=== PATIENT | male | born 1950 | race Caucasian/White ===

== ENCOUNTER 2022-09-29 09:41 | Inpatient (IN) ==
--- NOTE | 2022-09-24 10:49 | Anesthesiology Consultation ---
Date of Service September 24, 2022 Assessment & Plan (1) Encounter for pre-operative examination: ADDENDUM 09/28/22: Pt requiring admission post operatively. Plan for recheck with COVAMY Greenberg AM DOS due to possibility that patient may have a roommate. OR aware. Greenberg order placed - RAHEL FANG 09/28/22 1059 - COVID screening: Per casino assistant manager on 09/17/2022: Inmate, Greenberg ordered for am DOS. Chart Review Chart Review: Acceptable Risk for Surgery and Patient NOT seen in Pre Admission Testing History Surgery Operation Date: 09/29/22 11:40 Proposed Procedures p Percutaneous Endovascular Repair Abdominal Aortic Aneurysm - Gustavo Brice MD Height/Weight Height: 6 ft Weight: 62.596 kg Allergies Allergy/AdvReac Type Severity Reaction Status Date / Time No Known Allergies Allergy Verified 09/17/22 13:20 Medications Home Medications Medication Instructions Recorded Confirmed Last Taken aspirin 81 mg tablet,delayed 81 mg PO DAILY 11/07/20 09/17/22 Unknown release atorvastatin 40 mg tablet 40 mg PO DAILY 11/07/20 09/17/22 Unknown carvedilol 3.125 mg tablet 3.125 mg PO BID 11/07/20 09/17/22 Unknown Past Medical History Medical History (Updated 09/24/22 @ 10:48 by Vani Reis PA-C) Abdominal aortic aneurysm 5.5 cm CAD (coronary artery disease) h/o [place]/PCI 2005 GERD (gastroesophageal reflux disease) Hyperlipidemia Hypertension PAD (peripheral artery disease) s/p aortic femoral bypass surgery in 2005 Past Surgical History Surgical History (Updated 09/24/22 @ 10:49 by Vani Reis PA-C) H/O [id number] bypass 2005 H/O cardiac catheterization s/p PCI 2005 Social History Smoking Status: Unknown if ever smoked Testing Laboratory Results 09/23/2022 WBC: 6.8 H/H: 15/48 PLATELETS: 160 SODIUM: 141 POTASSIUM: 4.2 CHLORIDE: 104 CO2: 30 BUN: 17 CREATININE: 0.9 GLUCOSE: 81 PT: 11 PTT: 34 INR: 1 UA: negative A1c: 5.5% Electrocardiogram Date: 09/16/22 NSR, rate 81 bpm Possible LA enlargement RBBB Chest X-Ray Date: 09/14/22 No radiographic evidence of acute cardiopulmonary disease Echocardiogram Date: 08/20/22 EF 70% Normal wall motion No significant valvular pathology Other Testing Abdomen pelvis CTA 07/17/22 1. Patent aortobifemoral bypass. Stable aneurysmal dilatation of the infrarenal abdominal aorta, measuring 5.3 x 4 cm, since ultrasound of December 15, 2021 when allowing for differences in technique. Patent bilateral iliofemoral limbs, as described above. 2. 9 mm left lower lobe lobulated pulmonary nodule. This is indeterminate. A follow up chest CT in 6 months to ensure stability is recommended. 3. Emphysema. 4. Normal liver morphology. No hepatic lesions identified on unenhanced and arterial phase images.
--- NOTE | 2022-09-29 07:45 | History & Physical Report ---
Date of Service September 29, 2022 History of Present Illness Chief Complaint: AAA Primary Care Provider: NO PCP Chief Complaint rm#6 here for f/u CTA for AAA, hx aortobifemoral Subjective I had the pleasure of seeing your today for follow-up. As you know he is a 72-year-old gentleman who had an aortobifemoral bypass years ago. His recent study showed a 5.5 cm abdominal aortic aneurysm. He has a CT angiogram of this year for results. He denies any claudication. He denies any abdominal pain. Objective Vitals & Measurements HR: 73 (Monitored) BP: 124/72 SpO2: 96% Physical Exam On exam he is awake alert and oriented x3. He is in no apparent distress. His blood pressure is 124/72. Lungs are clear. Heart has a RRR. Abdominal exam is benign. Lower extremity shows no evidence of acute ischemic changes. Diagnostic Results His CT angiogram showed his aorta to have a 5.5 cm aneurysm located at the aortobifemoral anastomosis distally. The distal aorta however is patent and has been feeding the common iliac arteries and both internal iliac arteries. 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 Assessment/Plan Infrarenal abdominal aortic aneurysm, without rupture At this point there is a few options available. One of the options would be an abdominal operation resecting the aneurysm and placing a graft to the infrarenal aorta and then the bypass graft to at least one of the internal iliac arteries. Patient feels that it has been previously operated upon. An option is to do endovascularly by combining different grafts. This approach would be from the groins and the arm please see bifurcated graft in his [place] aorta with the 4 mm. Aortobifemoral graft coming from the arm and placed in the limb graft into the distal aorta or one of the common iliacs to supply his pelvis. He is agreeable to this approach and is less invasive and will require more stress surgery. The CT films reviewed changed to three-dimensional centerline flow for better measurements We have requested an echo to evaluate his cardiac status. Once this is done we will get him scheduled for his repair. Thank you very much for letting us participate in the care of this patient. Sincerely, Tien Brice MD Allergies Allergy/AdvReac Type Severity Reaction Status Date / Time No Known Allergies Allergy Verified 09/17/22 13:20 Home Medications Medication Instructions Recorded Confirmed Type aspirin 81 mg tablet,delayed 81 mg PO DAILY 11/07/20 09/17/22 History release atorvastatin 40 mg tablet 40 mg PO DAILY 11/07/20 09/17/22 History carvedilol 3.125 mg tablet 3.125 mg PO BID 11/07/20 09/17/22 History Past Med/Surg History Medical History (Updated 09/24/22 @ 10:48 by Vani Reis PA-C) Abdominal aortic aneurysm 5.5 cm CAD (coronary artery disease) h/o [place]/PCI 2005 GERD (gastroesophageal reflux disease) Hyperlipidemia Hypertension PAD (peripheral artery disease) s/p aortic femoral bypass surgery in 2005 Surgical History (Updated 09/24/22 @ 10:49 by Vani Reis PA-C) H/O [id number] bypass 2006 H/O cardiac catheterization s/p PCI 2006 Social History Smoking Status: Unknown if ever smoked Tobacco Cessation Education Requested by Patient: No Preferred Language: Unknown Compliance Aide Required: No Current Living Situation: Other Current Living Situation Comment: [facility]aken[facility] ribera
[~2022-09-29 09:41] MED LIST: LACTATED RINGER'S 1,000 ML IV SCH; ceFAZolin 2000MG 2,000 MG/15 ML SYR IV SCH
--- NOTE | 2022-09-29 09:50 | History & Physical Bridge Note ---
Date of Service September 29, 2022 History & Physical Bridge Note I have examined the patient, reviewed the History & Physical and in the interval since the performance of the History & Physical I have noted the following changes of clinical significance: no changes noted
[2022-09-29] MEDS ORDERED: DEXAMETHASONE SOD INJ 4 MG/ML VIAL ONE (11:04)
[2022-09-29] MEDS ORDERED: ONDANSETRON INJ 2 MG/ML 2 ML VIAL ONE (11:04)
[2022-09-29] MEDS ORDERED: PROPOFOL IV EMULSION 10 MG/ML 20 ML VIAL IV ONE (11:04)
[2022-09-29] MEDS ORDERED: LIDOCAINE 2% 2 ML VIAL/AMP(20MG/ML) INFIL ONE (11:04)
[2022-09-29] MEDS ORDERED: ROCURONIUM BROMIDE 10 MG/ML 5 ML VIAL IV ONE ×6 (11:04→14:21)
[2022-09-29] MEDS ORDERED: MIDAZOLAM HCL 1 MG/ML 2ML VIAL ONE (11:05)
[2022-09-29] MEDS ORDERED: fentaNYL citrate PF 100 MCG/2 ML VIAL ONE ×2 (11:05→16:07)
[2022-09-29] MEDS ORDERED: PHENYLEPHRINE HCL 10 MG/ML VIAL ONE (11:22)
[2022-09-29] MEDS ORDERED: ePHEDrine sulfate 50 MG/ML AMP ONE (11:22)
[2022-09-29] MEDS ORDERED: ONDANSETRON INJ 2 MG/ML 2 ML VIAL IV PRN ×2 (11:57→19:29)
[2022-09-29] MEDS ORDERED: PROMETHAZINE HCL 6.25 MG in SODIUM CHLORIDE 0.9% 50 ML IV PRN (11:57)
[2022-09-29] MEDS ORDERED: ATROPINE SULFATE 0.1 MG/ML 10ML SYR IV PRN (11:57)
[2022-09-29] MEDS ORDERED: fentaNYL citrate PF 100 MCG/2 ML VIAL IV PRN (11:57)
[2022-09-29] MEDS ORDERED: KETOROLAC 30 MG/ML VIAL IV PRN (11:57)
[2022-09-29] MEDS ORDERED: PAPAVERINE HCL INJ 30 MG/ML 2 ML VIAL ONE (12:37)
[2022-09-29] MEDS ORDERED: ceFAZolin 330 MG/ML 1 GM VIAL ONE (12:37)
[2022-09-29] MEDS ORDERED: GELATIN SPONGE SZ 100 ONE (12:37)
[2022-09-29] MEDS ORDERED: THROMBIN FOR SOLN 20000 UNIT KIT ONE (12:38)
[2022-09-29] MEDS ORDERED: VISIPAQUE IV PRN (15:33)
[2022-09-29] MEDS ORDERED: SURGICEL ABSORB HEMOSTAT 2IN X 14IN TOP ONE (16:44)
[2022-09-29] MEDS ORDERED: SUGAMMADEX SODIUM 200 MG/2 ML VIAL IV ONE (17:09)
--- NOTE | 2022-09-29 17:34 | Operative Report ---
Post Operative Report Pre & Post Diagnosis Operation Date: 09/29/22 11:40 Pre-Op Diagnosis: Abdominal Aortic Aneurysm Post-Op Diagnosis: Abdominal Aortic Aneurysm I identified the patient and participated in the time-out.: Yes Procedure Operation Date: 09/29/22 11:40 Actual Procedures p Endovascular Repair Abdominal Aortic Aneurysm, Bilateral femoral artery exposure, Bilateral common iliac artery embolization, Left brachial artery exposure, repair of left brachial artery with bovine patch - Gustavo Brice MD Surgeon Gustavo Brice MD Hris Administrator Jese,PAC Estimated Blood Loss 200 Findings Consistent with Post-Op Diagnosis Specimens none Anesthesia Type General Complications none Disposition Accompanied Patient To Recovery: No Disposition: Recovery Room I attest to the content of the Intraoperative Record and any orders documented therein. Any exceptions are noted below.
--- NOTE | 2022-09-29 18:22 | Anesthesiology Progress Note ---
Date of Service September 29, 2022 Anesthesia Post Procedure Vital Signs Vital Signs: Temp Pulse Pulse Resp BP Pulse Ox O2 Del Method 09/29/22 18:15 66 15 146/86 H 96 Room Air 09/29/22 18:05 70 12 147/86 H 95 Room Air 09/29/22 17:55 72 10 L 145/88 H 97 Room Air 09/29/22 17:46 96.8 F L 73 13 145/91 H 98 Room Air 09/29/22 10:16 97.7 F 84 20 128/67 97 Room Air Transfer of Care Handoff Completed per policy Notes Mental Status: alert / awake / arousable and participated in evaluation Patient Amnestic to Procedure: Yes Nausea / Vomiting: adequately controlled Pain: adequately controlled Airway Patency, RR, SpO2: stable & adequate BP & HR: stable & adequate Hydration State: stable & adequate Anesthetic Complications: no major complications apparent and Pt Satisfied with anesthetic care
[2022-09-29 19:23] LABS: Hematocrit (blood only) 43.3 % (42.0-52.0)
[2022-09-29] MEDS ORDERED: oxyCODONE/ACETAMINOPHEN 5mg/325mg TAB PO PRN (19:29)
[2022-09-29] MEDS ORDERED: MoRPHine SULFATE 4 MG/ML 1 ML CARP\\VIAL IV PRN (19:29)
[2022-09-29 19:38] LABS: Calcium 8.5 mg/dl (8.6-10.3); Magnesium 2.1 mg/dl (1.7-2.4)
--- NOTE | 2022-09-29 19:49 | Critical Care Consultation ---
Date of Consultation September 29, 2022 Assessment & Plan (1) Abdominal aortic aneurysm: Status post Endovascular Repair Abdominal Aortic Aneurysm, Bilateral femoral artery exposure, Bilateral common iliac artery embolization, Left brachial artery exposure, repair of left brachial artery with bovine patch Management Per vascular surgery - Admitted to ICU for overnight monitoring following procedure (2) PAD (peripheral artery disease): Continue ASA, statin. Surgery as above (3) CAD (coronary artery disease): No issue at this time. Echo from 09/04 with normal EF and valvular function. Monitor on telemetry. Continue ASA, statin (4) Hypertension: Currently normotensive. Continue Coreg (5) Hyperlipidemia: Continue statin (6) GERD (gastroesophageal reflux disease): No issue at this time. Monitor History of Present Illness Attending Physician: Gustavo Brice MD History of Present Illness Patient is a 72-year-old male with past medical history of HLD, CAD, HTN, PVD, GERD and previous femoral bypass in 2005. Patient was found to have asymptomatic 5.5 cm abdominal aortic aneurysm on CT angiogram earlier this year. Patient was also found to have both external iliac arteries occluded. He was scheduled for vascular procedure by vascular surgery and now presents to the ICU postoperative for endovascular repair AAA, bilateral femoral artery exposure, bilateral common iliac artery embolization, left brachial artery exposure, repair of left brachial artery with bovine patch. On evaluation, patient is alert and oriented. He denies pain, dizziness, headache, changes in vision, cough or congestion, shortness of breath, chest pain or palpitations, abdominal pain, nausea vomiting, numbness or tingling, loss of sensation. Patient to remain in ICU for overnight monitoring following vascular procedure. Allergies Allergy/AdvReac Type Severity Reaction Status Date / Time No Known Allergies Allergy Verified 09/29/22 09:59 Home Medications Medication Instructions Recorded Confirmed Type aspirin 81 mg tablet,delayed 81 mg PO DAILY 11/07/20 09/29/22 History release atorvastatin 40 mg tablet 40 mg PO DAILY 11/07/20 09/29/22 History carvedilol 3.125 mg tablet 3.125 mg PO BID 11/07/20 09/29/22 History Patient History Medical History (Updated 09/29/22 @ 20:11 by MELIDA Donohue) Abdominal aortic aneurysm 5.5 cm CAD (coronary artery disease) h/o [place]/PCI 2005 GERD (gastroesophageal reflux disease) Hyperlipidemia Hypertension PAD (peripheral artery disease) s/p aortic femoral bypass surgery in 2005 Surgical History H/O [id number] bypass 2005 H/O cardiac catheterization s/p PCI 2005 Social History Smoking Status: Current every day smoker Second Hand Exposure: Yes; Do You Dip or Chew Tobacco: No; Tobacco Cessation Education Requested by Patient: No Hx Alcohol Use: No Hx Substance Use: No Preferred Language: Austrian Communication Ability: Effective Pipe Connector Required: No Beliefs That Will Affect Care: None Current Living Situation: Other Current Living Situation Comment: [facility] Other Information That Helps Us Care for You: No Feels Safe at Home: Yes Safety Concerns: Feels Safe At This Time Assistive Devices: Glasses Review of Systems Review of Systems: All systems reviewed & are unremarkable except as noted in HPI & below Physical Exam Constitutional: WD/WN, vitals as above Eyes: PERRL, conjunctivae normal, anicteric sclerae ENMT: external ear and nose normal, oropharynx normal Neck: trachea midline, no thyromegaly Respiratory: normal respiratory effort, lungs clear to auscultation Cardiovascular: RRR, no murmur, no edema Heart Sounds: normal S1 and normal S2; no murmur Extremities: normal capillary refill Gastrointestinal (Abdomen): normal bowel sounds, soft, nontender, no hepatosplenomegaly Musculoskeletal: no cyanosis or clubbing, extremities motor strength 5/5 Skin: no rashes, warm and dry Neurologic: PERRL, EOMI, accommodation nl, no face palsy, no dysarthria Psychiatric: A+Ox3, euthymic affect Genitourinary: Indwelling Loya catheter Results & Data Results & Data Vital Signs (Past 12 Hours) Vital Signs Temp Pulse Pulse Resp BP Pulse Ox O2 Del Method 09/29/22 19:19 72 20 161/91 H 97 Room Air 09/29/22 18:57 73 12 148/92 H 96 Room Air 09/29/22 18:45 36.1 C L 74 12 154/93 H 93 Room Air 09/29/22 18:35 76 13 147/89 H 93 Room Air 09/29/22 18:25 70 13 144/85 H 99 Room Air 09/29/22 18:15 66 15 146/86 H 96 Room Air 09/29/22 18:05 70 12 147/86 H 95 Room Air 09/29/22 17:55 72 10 L 145/88 H 97 Room Air 09/29/22 17:46 36 C L 73 13 145/91 H 98 Room Air 09/29/22 10:16 36.5 C 84 20 128/67 97 Room Air Coding Level of Care Code 54700 IN/OBS CONSULT LVL 3,45M Diagnoses Abdominal aortic aneurysm I71.40 PAD (peripheral artery disease) I73.9 CAD (coronary artery disease) I25.10 Hypertension I10 Hyperlipidemia E78.5 GERD (gastroesophageal reflux disease) K21.9
[2022-09-29 20:06] LABS: INR 1.1 (0.9-1.1); Partial Thromboplastin Ratio 2.1; Prothrombin Time 12.4 Seconds (9.0-12.0)
[2022-09-29 20:42] LABS: Partial Thromboplastin Time 57.9 Seconds (21.0-31.0)
[2022-09-29] MEDS: D5W AND 1/2NSS 1,000 ML IV SCH (21:11)
[2022-09-29] MEDS: ceFAZolin 2000MG 2,000 MG/15 ML SYR IV SCH (21:12)
[2022-09-29] MEDS: carvediloL 3.125 MG TAB PO SCH (21:13)
[2022-09-30] MEDS: D5W AND 1/2NSS 1,000 ML IV SCH ×3 (04:38→19:27)
[2022-09-30] MEDS: ceFAZolin 2000MG 2,000 MG/15 ML SYR IV SCH (05:15)
[2022-09-30 05:21] LABS: Calcium 7.9 mg/dl (8.6-10.3); Creatinine Clr Calc Pharmacy 74.1 ml/min; Est GFR (African American) 102.8 ml/min; Est GFR (Non-African American) 88.7 ml/min; Potassium 4.4 mmol/L (3.5-5.1)
[2022-09-30 06:11] LABS: Basophils # (auto) 0.03 K/uL (0-0.2); Basophils % (auto) 0.3 %; Hematocrit (blood only) 37.5 % (42.0-52.0); Hemoglobin 12.9 g/dl (14.0-18.0); Immature Granulocytes # (auto) 0.03 K/uL (0.01-0.20); Immature Granulocytes % (auto) 0.3 %; Lymphocytes % (auto) 6.9 %; Mean Corpuscular Hemoglobin 32.1 pg (25.0-34.0); Mean Corpuscular Hgb Conc 34.4 g/dL (32.0-36.0); Mean Corpuscular Volume 93.3 fL (80.0-100.0); Monocytes # (auto) 0.77 K/uL (0.11-0.59); Monocytes % (auto) 7.6 %; Neutrophils # (auto) 8.58 K/uL (1.40-6.50); Neutrophils % (auto) 84.9 %; Platelet Count 136 K/uL (130-400); RDW Standard Deviation 41.6 fL (36.4-46.3); Red Blood Count 4.02 M/uL (4.70-6.10); White Blood Count 10.11 K/ul (4.8-10.8)
[2022-09-30] MEDS: carvediloL 3.125 MG TAB PO SCH ×2 (08:05→16:31)
[2022-09-30] MEDS: ASPIRIN 81 MG ECTAB PO SCH (08:05)
[2022-09-30] MEDS: ATORVASTATIN 40 MG TAB PO SCH (08:05)
--- NOTE | 2022-09-30 08:46 | Critical Care Progress Note ---
Date of Service September 30, 2022 Assessment & Plan (1) PAD (peripheral artery disease): (2) Hypertension: (3) GERD (gastroesophageal reflux disease): (4) Hyperlipidemia: Plan Impression: 72-year-old male status post endovascular repair of an aortic aneurysm. He is being observed in the ICU postoperatively and doing well. Recommendations: 1. Postop percutaneous endovascular repair of an aortic aneurysm. Doing well clinically. Await vascular surgery plans for disposition. Will defer to them management of the wound vacs and access sites. Pain control per vascular surgery. 2. Hypertension: Continue carvedilol. 3. Hyperlipidemia: Continue Lipitor. Activity: Per vascular surgery. Patient appears to be doing well clinically and may be able to mobilize relatively quickly. His critical care issues appear to have resolved so critical care will sign off. Ultimate disposition per vascular surgery. Feel free to contact us with additional questions or concerns. Admission and Anticipated Discharge Date Admission Date: September 29, 2022 Subjective Patient seen and examined. EMR reviewed. Discussed with bedside critical care nurse. Patient is currently awake and alert. He is having some minor pain at his left brachial artery cutdown site. Otherwise he is doing well. Tolerated a diet this morning. No nausea or vomiting. Denies chest pain or palpitations. No numbness or tingling. Review of Systems Review of Systems: All systems reviewed & are unremarkable except as noted in Subjective Physical Exam Constitutional: WD/WN, vitals as above Neck: trachea midline, no thyromegaly Respiratory: normal respiratory effort, lungs clear to auscultation Cardiovascular: RRR, no murmur, no edema Gastrointestinal (Abdomen): normal bowel sounds, soft, nontender, no hepatosplenomegaly Musculoskeletal: Extremities: extremities normal to inspection Skin: no rashes, warm and dry Cutdown access sites are dressed and slightly tender to palpation Neurologic: Nonfocal exam Lymphatic: no cervical lymphadenopathy Results & Data Results & Data Vital Signs (Past 12 Hours) Vital Signs Pulse Resp BP Pulse Ox O2 Del Method 09/30/22 08:00 76 14 09/30/22 08:00 122/68 09/30/22 07:32 88 17 91 09/30/22 08:00 Room Air 09/30/22 08:09 64 09/30/22 07:10 69 12 93 09/30/22 07:00 65 13 92 09/30/22 07:00 123/68 09/30/22 06:00 79 17 93 09/30/22 05:30 62 14 93 09/30/22 05:30 123/74 09/30/22 05:00 63 10 L 94 09/30/22 05:00 133/76 09/30/22 04:30 124/70 09/30/22 04:30 71 16 86 L 09/30/22 04:00 64 12 90 09/30/22 04:00 123/65 09/30/22 03:30 73 19 87 L 09/30/22 03:30 145/70 H 09/30/22 04:00 Room Air 09/30/22 03:00 60 12 93 09/30/22 03:00 128/71 09/30/22 02:30 62 14 87 L 09/30/22 02:30 111/72 09/30/22 02:00 63 15 09/30/22 02:00 122/71 09/30/22 01:30 66 11 L 09/30/22 01:30 118/67 09/30/22 01:00 63 12 93 09/30/22 01:00 119/67 09/30/22 00:30 70 14 09/30/22 00:30 111/72 09/30/22 00:00 66 11 L 09/30/22 00:00 121/69 09/29/22 23:30 67 12 92 09/29/22 23:30 123/72 09/29/22 23:00 67 10 L 09/29/22 23:00 116/69 09/29/22 22:30 71 13 09/29/22 22:30 112/67 09/29/22 22:00 75 12 93 09/29/22 22:00 111/69 09/29/22 21:30 81 13 92 09/29/22 21:30 115/65 09/29/22 21:00 80 10 L 09/29/22 21:00 103/65 Critical Care Results & Data Vital Signs (Past 12 Hours) Vital Signs Pulse Resp BP Pulse Ox O2 Del Method 09/30/22 08:00 76 14 09/30/22 08:00 122/68 09/30/22 07:32 88 17 91 09/30/22 08:00 Room Air 09/30/22 08:09 64 09/30/22 07:10 69 12 93 07/19/23 07:00 65 13 92 09/30/22 07:00 123/68 09/30/22 06:00 79 17 93 09/30/22 05:30 62 14 93 09/30/22 05:30 123/74 09/30/22 05:00 63 10 L 94 09/30/22 05:00 133/76 09/30/22 04:30 124/70 09/30/22 04:30 71 16 86 L 09/30/22 04:00 64 12 90 09/30/22 04:00 123/65 09/30/22 03:30 73 19 87 L 09/30/22 03:30 145/70 H 09/30/22 04:00 Room Air 09/30/22 03:00 60 12 93 09/30/22 03:00 128/71 09/30/22 02:30 62 14 87 L 09/30/22 02:30 111/72 09/30/22 02:00 63 15 09/30/22 02:00 122/71 09/30/22 01:30 66 11 L 09/30/22 01:30 118/67 09/30/22 01:00 63 12 93 09/30/22 01:00 119/67 09/30/22 00:30 70 14 09/30/22 00:30 111/72 09/30/22 00:00 66 11 L 09/30/22 00:00 121/69 09/29/22 23:30 67 12 92 09/29/22 23:30 123/72 09/29/22 23:00 67 10 L 09/29/22 23:00 116/69 09/29/22 22:30 71 13 09/29/22 22:30 112/67 09/29/22 22:00 75 12 93 09/29/22 22:00 111/69 09/29/22 21:30 81 13 92 09/29/22 21:30 115/65 09/29/22 21:00 80 10 L 09/29/22 21:00 103/65 Lab & Micro Results (Past 24 Hours) RBC 4.02 M/uL (4.70-6.10) L 09/30/22 WBC 10.11 K/ul (4.8-10.8) 09/30/22 Hgb 12.9 g/dl (14.0-18.0) L 09/30/22 Hct 37.5 % (42.0-52.0) L 09/30/22 MCV 93.3 fL (80.0-100.0) 09/30/22 MCH 32.1 pg (25.0-34.0) 09/30/22 MCHC 34.4 g/dL (32.0-36.0) 09/30/22 RDW Standard Deviation 41.6 fL (36.4-46.3) 09/30/22 RDW Coefficient of Variation 12.0 % (11.5-14.5) 09/30/22 Plt Count 136 K/uL (130-400) 09/30/22 MPV 11.0 fL (9.4-12.4) 09/30/22 Neutrophils (%) (Auto) 84.9 % 09/30/22 Lymphocytes (%) (Auto) 6.9 % 09/30/22 Monocytes # (Auto) 0.77 K/uL (0.11-0.59) H 09/30/22 Eosinophils # (Auto) 0.00 K/uL (0-0.50) 09/30/22 Immature Granulocyte % (Auto) 0.3 % 09/30/22 Neutrophils # (Auto) 8.58 K/uL (1.40-6.50) H 09/30/22 Lymphocytes # (Auto) 0.70 K/uL (1.2-3.4) L 09/30/22 Monocytes # (Auto) 0.77 K/uL (0.11-0.59) H 09/30/22 Eosinophils # (Auto) 0.00 K/uL (0-0.50) 09/30/22 Basophils # (Auto) 0.03 K/uL (0-0.2) 09/30/22 Immature Granulocyte # (Auto) 0.03 K/uL (0.01-0.20) 3 Na 136 mmol/L (136-145) 09/30/22 K 4.4 mmol/L (3.5-5.1) 09/30/22 Cl 106 mmol/L (98-107) 09/30/22 CO2 25 mmol/L (21-32) 09/30/22 Anion Gap 5 (3-11) 09/30/22 BUN 16 mg/dl (6-23) 09/30/22 Creatinine 0.84 mg/dl (0.6-1.4) 09/30/22 Estimated GFR ( Amer) 102.8 ml/min 09/30/22 Estimated GFR (Non-Af Amer) 88.7 ml/min 09/30/22 BUN/Creatinine Ratio 19.0 (10-20) 09/30/22 Glu 173 mg/dl (70-99(Fasting)) H 09/30/22 Ca 7.9 mg/dl (8.6-10.3) L 09/30/22 Mg 2.1 mg/dl (1.7-2.4) 09/29/22 18:51 Calcium Level 7.9 mg/dl (8.6-10.3) L 09/30/22 04:37 Prothromb Time International Ratio 1.1 (0.9-1.1) 09/29/22 18:4 1 I & O Totals 24 Hours 09/29/22 09/30/22 10/01/22 06:59 06:59 06:59 Intake Total 3531.25 / 3531.25 Output Total 1820 / 1820 150 / 150 Balance 1711.25 / 1711.25 -150 / -150 Cumulative 08/12/22 12:01 thru 09/30/22 08:00 Intake Total 3531.25 Output Total 1970 Balance 1561.25 RT Ventilator Mngmt (Last Documented) Ventilator Ordered Settings Respiratory Rate 14 09/30/22 08:00 Ventilator - PT Measurements Respiratory Rate 14 Coding Level of Care Code 12565 SUB INP/OBS CARE 3/50MIN Diagnoses PAD (peripheral artery disease) I73.9 Hypertension I10 GERD (gastroesophageal reflux disease) K21.9 Hyperlipidemia E78.5
--- NOTE | 2022-09-30 13:02 | Surgery Progress Note ---
Date of Service September 30, 2022 Assessment & Plan (1) Abdominal aortic aneurysm: Plan: Pt doing well s/p evar and BL femoral and LUE cutdowns. pulses intact, dressings intact. VS Stable. Will reeval tomorrow. Admission and Anticipated Discharge Date Admission Date: September 29, 2022 Subjective 72 m POD # 1 after evar with BL groin cutdown and L brachial art cutdown with bovine patch angioplasty, seen in f/u today. Pt admits some incisional pain, but denies any other new concerns. Review of Systems Review of Systems: All systems reviewed & are unremarkable except as noted in HPI & below Physical Exam Constitutional: WD/WN, vitals as above not in distress Neck: trachea midline Respiratory: normal respiratory effort, lungs clear to auscultation Auscultation: + diminished lung sounds Cardiovascular: Rate/Rhythm: regular rate and regular rhythm Vessels: posterior tibial pulses present, dorsalis pedis pulses present and radial pulses present (+3); + abnormal peripheral pulses Extremities: normal capillary refill; no edema Gastrointestinal (Abdomen): Inspection/Auscultation: abdomen normal to inspection and normal bowel sounds Percussion/Palpation: abdomen soft; abdomen nontender Musculoskeletal: no cyanosis or clubbing, extremities motor strength 5/5 Skin: no rashes, warm and dry + incision (BL groins prevena intact. LUE incision intact.) Neurologic: moves all extremities and awake; no focal motor deficits and not confused Psychiatric: A+Ox3, euthymic affect Results & Data Vital Signs (Past 12 Hours) Vital Signs Temp Pulse Resp BP Pulse Ox O2 Del Method 09/30/22 11:00 78 18 121/69 95 Room Air 09/30/22 10:00 81 18 120/66 94 Room Air 09/30/22 09:23 36.8 C 09/30/22 09:00 76 16 114/68 92 Room Air 09/30/22 08:00 76 14 09/30/22 08:00 122/68 09/30/22 07:32 88 17 91 09/30/22 08:00 Room Air 09/30/22 08:09 64 09/30/22 07:10 69 12 93 09/30/22 07:00 65 13 92 09/30/22 07:00 123/68 09/30/22 06:00 79 17 93 09/30/22 05:30 62 14 93 09/30/22 05:30 123/74 09/30/22 05:00 63 10 L 94 09/30/22 05:00 133/76 09/30/22 04:30 124/70 09/30/22 04:30 71 16 86 L 09/30/22 04:00 64 12 90 09/30/22 04:00 123/65 09/30/22 03:30 73 19 87 L 09/30/22 03:30 145/70 H 09/30/22 04:00 Room Air 09/30/22 03:00 60 12 93 09/30/22 03:00 128/71 09/30/22 02:30 62 14 87 L 09/30/22 02:30 111/72 09/30/22 02:00 63 15 09/30/22 02:00 122/71 09/30/22 01:30 66 11 L 09/30/22 01:30 118/67 09/30/22 01:00 63 12 93 09/30/22 01:00 119/67
[2022-10-01] MEDS: D5W AND 1/2NSS 1,000 ML IV SCH (02:47)
[2022-10-01 05:45] LABS: Basophils # (auto) 0.03 K/uL (0-0.2); Basophils % (auto) 0.4 %; Hematocrit (blood only) 34.6 % (42.0-52.0); Hemoglobin 11.9 g/dl (14.0-18.0); Immature Granulocytes # (auto) 0.02 K/uL (0.01-0.20); Immature Granulocytes % (auto) 0.3 %; Lymphocytes # (auto) 0.77 K/uL (1.2-3.4); Lymphocytes % (auto) 10.3 %; Mean Corpuscular Hemoglobin 32.1 pg (25.0-34.0); Mean Corpuscular Hgb Conc 34.4 g/dL (32.0-36.0); Mean Corpuscular Volume 93.3 fL (80.0-100.0); Mean Platelet Volume 11.1 fL (9.4-12.4); Monocytes # (auto) 0.78 K/uL (0.11-0.59); Monocytes % (auto) 10.4 %; Neutrophils # (auto) 5.89 K/uL (1.40-6.50); Neutrophils % (auto) 78.6 %; Platelet Count 115 K/uL (130-400); RDW Coefficient of Variation 12.3 % (11.5-14.5); RDW Standard Deviation 42.1 fL (36.4-46.3); Red Blood Count 3.71 M/uL (4.70-6.10); White Blood Count 7.49 K/ul (4.8-10.8)
[2022-10-01 06:00] LABS: BUN Creatinine Ratio 14.3 (10-20); Calcium 7.7 mg/dl (8.6-10.3); Creatinine Clr Calc Pharmacy 88.9 ml/min; Est GFR (African American) 110.8 ml/min; Est GFR (Non-African American) 95.6 ml/min; Potassium 3.8 mmol/L (3.5-5.1)
[2022-10-01] MEDS: carvediloL 3.125 MG TAB PO SCH ×2 (08:29→18:12)
[2022-10-01] MEDS: ASPIRIN 81 MG ECTAB PO SCH (08:29)
[2022-10-01] MEDS: ATORVASTATIN 40 MG TAB PO SCH (08:29)
[2022-10-01] MEDS ORDERED: Nursing to Pharmacy Communication SCH (10:30)
--- NOTE | 2022-10-01 13:07 | Surgery Progress Note ---
Date of Service October 01, 2022 Assessment & Plan (1) Abdominal aortic aneurysm: Plan: This patient is day 2 after EVAR. He is doing extremely well. He will be discharged back to the correctional facility today. Admission and Anticipated Discharge Date Admission Date: September 29, 2022 Subjective 72 m POD # 2 after evar with BL groin cutdown and L brachial art cutdown with bovine patch angioplasty, seen in f/u today. Pt admits some incisional pain, but denies any other new concerns. He has no pain in his lower or upper extremities. His only complaint is hand and feet feel cold. Physical Exam Constitutional: WD/WN, vitals as above Respiratory: normal respiratory effort; no respiratory distress Cardiovascular: Rate/Rhythm: regular rate and regular rhythm Vessels: femoral pulses present Extremities: normal capillary refill Gastrointestinal (Abdomen): Inspection/Auscultation: abdomen normal to inspection Percussion/Palpation: abdomen soft Skin: + incision (Prevena dressing is in place and working well. Left arm incision is clean) Neurologic: CN's II-XI intact bilaterally and moves all extremities Psychiatric: Orientation: alert and oriented x 3 Results & Data Vital Signs (Past 12 Hours) Vital Signs Temp Pulse Resp BP Pulse Ox O2 Del Method 10/01/22 13:00 76 13 91 10/01/22 13:00 138/71 10/01/22 12:30 74 15 93 10/01/22 12:30 139/63 10/01/22 12:23 77 15 140/66 94 10/01/22 11:00 67 18 121/65 92 10/01/22 10:00 70 14 116/58 L 90 10/01/22 09:00 78 11 L 125/67 91 10/01/22 08:00 86 14 148/83 H 93 Room Air 10/01/22 08:00 74 10/01/22 08:00 36.7 C 10/01/22 07:38 87 15 93 10/01/22 07:38 142/95 H 10/01/22 07:30 88 15 91 10/01/22 07:00 73 14 139/77 93 Room Air 10/01/22 07:00 36.9 C 10/01/22 06:00 73 15 94 10/01/22 06:00 142/69 H 10/01/22 05:30 73 15 93 10/01/22 05:30 137/74 10/01/22 05:00 74 15 90 10/01/22 05:00 142/71 H 10/01/22 04:30 80 14 91 10/01/22 04:30 137/73 10/01/22 04:00 75 14 91 10/01/22 04:00 37.1 C 123/67 10/01/22 03:30 76 14 90 10/01/22 03:30 132/66 10/01/22 03:00 76 13 89 L 10/01/22 03:00 121/70 10/01/22 02:30 73 12 91 10/01/22 02:30 130/73 10/01/22 02:00 77 15 90 10/01/22 02:00 127/70 10/01/22 01:30 78 14 88 L 10/01/22 01:30 126/68
[2022-10-02 07:40] LABS: Basophils # (auto) 0.04 K/uL (0-0.2); Basophils % (auto) 0.5 %; Eosinophils # (auto) 0.04 K/uL (0-0.50); Eosinophils % (auto) 0.5 %; Hematocrit (blood only) 34.6 % (42.0-52.0); Hemoglobin 12.2 g/dl (14.0-18.0); Immature Granulocytes # (auto) 0.02 K/uL (0.01-0.20); Immature Granulocytes % (auto) 0.3 %; Lymphocytes # (auto) 0.88 K/uL (1.2-3.4); Lymphocytes % (auto) 11.9 %; Mean Corpuscular Hemoglobin 32.4 pg (25.0-34.0); Mean Corpuscular Hgb Conc 35.3 g/dL (32.0-36.0); Mean Platelet Volume 11.2 fL (9.4-12.4); Monocytes # (auto) 0.83 K/uL (0.11-0.59); Monocytes % (auto) 11.2 %; Neutrophils # (auto) 5.57 K/uL (1.40-6.50); Neutrophils % (auto) 75.6 %; Platelet Count 122 K/uL (130-400); RDW Coefficient of Variation 12.2 % (11.5-14.5); RDW Standard Deviation 41.1 fL (36.4-46.3); Red Blood Count 3.76 M/uL (4.70-6.10); White Blood Count 7.38 K/ul (4.8-10.8)
[2022-10-02 07:49] LABS: BUN Creatinine Ratio 19.7 (10-20); Calcium 8.3 mg/dl (8.6-10.3); Creatinine Clr Calc Pharmacy 95.7 ml/min; Est GFR (African American) 113.5 ml/min; Potassium 3.9 mmol/L (3.5-5.1)
[2022-10-02] MEDS: ATORVASTATIN 40 MG TAB PO SCH (08:29)
[2022-10-02] MEDS: ASPIRIN 81 MG ECTAB PO SCH (08:29)
[2022-10-02] MEDS: carvediloL 3.125 MG TAB PO SCH (08:29)
--- NOTE | 2022-10-02 11:10 | Discharge Summary ---
Date of Service October 02, 2022 Admission HPI Per Admitting Provider Chief Complaint rm#6 here for f/u CTA for AAA, hx aortobifemoral Subjective I had the pleasure of seeing your today for follow-up. As you know he is a 72-year-old gentleman who had an aortobifemoral bypass years ago. His recent study showed a 5.5 cm abdominal aortic aneurysm. He has a CT angiogram of this year for results. He denies any claudication. He denies any abdominal pain. Objective Vitals & Measurements HR: 73 (Monitored) BP: 124/72 SpO2: 96% Physical Exam On exam he is awake alert and oriented x3. He is in no apparent distress. His blood pressure is 124/72. Lungs are clear. Heart has a RRR. Abdominal exam is benign. Lower extremity shows no evidence of acute ischemic changes. Diagnostic Results His CT angiogram showed his aorta to have a 5.5 cm aneurysm located at the aortobifemoral anastomosis distally. The distal aorta however is patent and has been feeding the common iliac arteries and both internal iliac arteries. 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 Assessment/Plan Infrarenal abdominal aortic aneurysm, without rupture At this point there is a few options available. One of the options would be an abdominal operation resecting the aneurysm and placing a graft to the infrarenal aorta and then the bypass graft to at least one of the internal iliac arteries. Patient feels that it has been previously operated upon. An option is to do endovascularly by combining different grafts. This approach would be from the groins and the arm please see bifurcated graft in his [place] aorta with the 4 mm. Aortobifemoral graft coming from the arm and placed in the limb graft into the distal aorta or one of the common iliacs to supply his pelvis. He is agreeable to this approach and is less invasive and will require more stress surgery. The CT films reviewed changed to three-dimensional centerline flow for better measurements We have requested an echo to evaluate his cardiac status. Once this is done we will get him scheduled for his repair. Thank you very much for letting us participate in the care of this patient. Sincerely, Tien Brice MD Admission Exam Per Admitting Provider On exam he is awake alert and oriented x3. He is in no apparent distress. His blood pressure is 124/72. Lungs are clear. Heart has a RRR. Abdominal exam is benign. Lower extremity shows no evidence of acute ischemic changes. Principal Diagnosis 1. s/p EVAR with BL femoral artery cutdowns, LUE brachial artery cutdown and bovine patch angioplasty 2. AAA Discharge Exam Constitutional WD/WN, vitals as above not in distress Neck trachea midline Respiratory normal respiratory effort, lungs clear to auscultation Auscultation: + diminished lung sounds Cardiovascular Rate/Rhythm: regular rate and regular rhythm Vessels: posterior tibial pulses present, dorsalis pedis pulses present and radial pulses present (+3); + abnormal peripheral pulses Extremities: normal capillary refill; no edema Gastrointestinal (Abdomen) Inspection/Auscultation: abdomen normal to inspection and normal bowel sounds Percussion/Palpation: abdomen soft; abdomen nontender Musculoskeletal no cyanosis or clubbing, extremities motor strength 5/5 Skin no rashes, warm and dry + incision (BL groins prevena intact. LUE incision intact.) Neurologic moves all extremities and awake; no focal motor deficits and not confused Psychiatric A+Ox3, euthymic affect Discharge Data Allergies Allergy/AdvReac Type Severity Reaction Status Date / Time No Known Allergies Allergy Verified 09/29/22 09:59 Consultations 09/29/22 19:29 Consult Volleyball Assistant Coach Routine Procedures Performed Operation Date: 09/29/22 11:40 Actual Procedures p Percutaneous Endovascular Repair Abdominal Aortic Aneurysm(Not Applicable) - Gustavo Brice MD Ordered Studies 09/29/22 07:56 EV AAA repair aorta only Routine Hospital Course (1) Abdominal aortic aneurysm: This patient is day 3 after EVAR. He is doing extremely well. He will be discharged back to the correctional facility today. Total Time Total Time Spent Total Time Spent (In Minutes): 0 Discharge Plan Discharge Items Patient Disposition: Correctional Facility Reason For Visit: AAA Discharge Diagnosis: Abdominal aortic aneurysm Activity: Per Instructions section Non-emergency contact: Surgeon Call non-emergency contact if: your temperature is above 101.5, your wound has increased redness, your wound has increased drainage and your wound pain has increased Follow-up/Referrals: PCP,NO [Primary Care Provider] - Diet: Heart Healthy Addtl Attending Provider Instructions: SPECIAL CARE INSTRUCTIONS: Medications: * Continue to take your medications as directed. May use Tylenol 3 for pain Groin dressings are under suction. If the suction stops working or it day 7 after surgery these dressings can be removed and replaced with a dry 4 x 4 if needed Incision/Puncture Site Care: * You will have an incision or puncture in each of your groins. Liquid glue wi ll be used to seal your incisions/puncture site. This will lift off as the incisions/puncture sites heal. * If Liquid glue is not used, there will be small dressings covering your incisions. After you get home, you may remove the dressings and shower - allowing the warm soapy water to run over it. * Be sure to dry the sites well and keep them dry. * DO NOT SOAK IN A TUB/POOL/etc. UNTIL ALL SURGICAL SITES ARE HEALED. DO NOT REMOVE THE GLUE UNTIL THE INCISIONS HEAL. Restrictions: * Limit yourself to manager purchasing activity for the first week. * You may walk and go up and down steps. * Avoid excessive bending or movement at the level of the incisions or punctures. Risks and Possible Complications: * Infection/Drainage/Bleeding - Drainage or bleeding from the incisions/puncture site should be minimal. If you have excessive bleeding or drainage, call our office ([phone]) right away. * Pain/Numbness - You may experience some mild pain or soreness at your incision sites. You may also have some numbness around the incisions or into the insides of your thighs. Bruising is normal and should resolve within 2 weeks. * Changes in Appetite or Bowel Habits - Mostly related to anesthesia and pain medication, some patients have reported decreased appetite and/or problems with constipation. These symptoms usually improve over a few weeks. Remembering to take an [id number] stool softener, as directed, will help you to avoid constipation. Call our office and seek emergent treatment if you develop: * Fever or chills * Have a temperature greater than 101 degrees F * Any redness or purulent drainage from your incisions or punctures * Severe abdominal, chest or back pain SKIN IRRITATION: * You may experience some redness and/or swelling in the area where radiation was administered. If any skin irritation occurs, please contact your family physician. You will be receiving a call from the Vascular Surgery Nurse after you are discharged. FOLLOW UP VISIT: It is important for you to keep your follow up appointments with your medical provider. Keep any scheduled doctor appointments. Call [phone] to schedule a follow up appointment if one not already scheduled. Pending Studies at Discharge: No Stand-Alone Forms: My [facility] Skilled Items Patient informed of condition?: Yes Discharge Level of Care: Other Communicable Disease: No Discharge Prognosis: Improving Lines: None Urinary Catheter: No Medications and DC Order Prescriptions: Continued aspirin 81 mg tablet,delayed release (DR/EC) 81 mg PO DAILY atorvastatin 40 mg tablet 40 mg PO DAILY carvedilol 3.125 mg tablet 3.125 mg PO BID Rx Instructions: must administer with a meal/food Discharge Orders: Discharge Order (Routine); Ordered 10/02/22 Ordered By: Gustavo Ortiz/Other Patient Handouts: DVT Post Op Prevention Admission Data Admit Date/Time: 09/29/22 09:51 Attending Provider: Gustavo Brice Admit Provider: Gustavo Brice Primary Care Provider: PCP,NO Other Providers: Sonny Archibald ; Milton Guzmán ; Valeriy Arboleda ; Alonzo Magana ; Steven Medina ; Dale Barton ; Debra Stewart ; Alberto Julien ; Kaylin Javed ; Kristie Chavez Benner Other Interventions: Discharge Summary Assessment (RN) Last Done: 10/02/22 10:28
--- NOTE | 2022-10-21 14:35 | Operative Report ---
Post Operative Report Pre & Post Diagnosis Operation Date: 09/29/22 11:40 Pre-Op Diagnosis: Abdominal Aortic Aneurysm Post-Op Diagnosis: Abdominal Aortic Aneurysm I identified the patient and participated in the time-out.: Yes Procedure Operation Date: 09/29/22 11:40 Actual Procedures p Percutaneous Endovascular Repair Abdominal Aortic Aneurysm(Not Applicable), bilateral femoral artery exposure, left axillary artery exposure embolization of bilateral iliac arteries- Gustavo Brice MD Surgeon Gustavo Brice MD Ccie Jese,PAC Estimated Blood Loss 200 Findings Consistent with Post-Op Diagnosis Specimens none Anesthesia Type General Complications none Disposition Accompanied Patient To Recovery: No Disposition: Recovery Room Indications This is a 72-year-old gentleman who has an aortobifemoral bypass graft. He has developed an aneurysm of his [place] aorta which is over 5 and half centimeters in size. An attempted endovascular pair was recommended. We would attempt to try to save the internal iliac arteries on both sides if possible however if not these will be embolized and the relining of his old graft will be done. I have discussed the risks options and benefits of the procedure with the patient. The patient understands the risks options and benefits and agrees to the procedure. Description of Procedure The patient was taken the op room and placed supine position. After general anesthesia was accomplished the abdomen and groins were prepped draped in a sterile manner. The patient was identified and a timeout was performed. Bilateral groin cutdowns were performed. These exposed the limbs of the aortobifemoral bypass on both sides. We then did a cutdown over the left axillary artery after this arm was also prepped and draped originally. The artery was exposed. Patient was heparinized at that time. Puncture was made of the left axillary artery and 6 [place] sheath inserted. The wire was then passed through the sheath using a angled glide catheter down into the distal aorta. Destination sheath was then inserted over the wire into the distal aorta. We then punctured both limbs of the graft. Through the right limb we inserted a 16 sheath. Through the left limb we inserted a 12 [place] sheath. An 035 Glidewire followed by a pigtail was inserted through the left groin. Aortography was performed. This marked the renal arteries as well as the distal aorta. Through the right limb we then inserted a 23 x 14 x 10 excluder. This was passed up to the renal arteries. This was deployed just below the renal arteries. The ipsi limb went into the right limb of the aortobifemoral bypass. The contralateral limb fell just short of the left limb. The left limb was too far into the shaft of the aortobifemoral graft to cannulate the [place] aorta. We therefore inserted a 035 wire through the left groin followed by a C catheter. We managed to pass this down into both the right and left iliac arteries. We deployed at 14 mm Amplatzer plug into the left iliac and a 12 mm Amplatzer plug into the right iliac. Once this was done we extended the left limb with a 16 x 14-1/2 x 10. Q. 50 balloon was then used to dilate the proximal and distal attachment points as well as the overlaps. There appeared to be a type I endoleak noticed. We then inserted a 26 x 3 point 3 aortic cuff to go up sli ghtly higher to the renal arteries and seal the endoleak. Completion angiogram done at that time showed no evidence of endoleak. Both limbs of the aortobifemoral are widely patent. There is no flow seen into the distal aorta. There was flow noted in the left internal iliac artery being reconstituted. The sheaths were then pulled from each groin. The limbs of the graft were repaired with 5-0 Prolene sutures. These wounds were then closed with running 2-0 Vicryl suture for the femoral sheath and a running 3-0 Vicryl for the subcutaneous layer. Heather were used for the skin. The sheath was then pulled from the left distal axillary artery. There was a fair amount of disease in this artery. It was decided to patch this artery with a bovine patch. Bovine patch was then used and sewn in place over the arteriotomy of the distal axillary artery. Clamps were removed. Excellent flow was seen through the artery. After hemostasis was noted. This wound was then closed with a running 3-0 Vicryl subcutaneous layer and heather for the skin. Sterile dressings were applied to the wound.The patient left the operation room in satisfactory condition and tolerated the procedure well. All needle and sponge counts were correct at the end of the procedure. Daphnie Stephens Pac assisted due to lack of resident availability and was necessary for positioning, draping, retraction, wound closure deep layers, subcutaneous tissue, and skin closure and was necessary for assisting with the case. I attest to the content of the Intraoperative Record and any orders documented therein. Any exceptions are noted below.
== END 2022-10-02 15:44 | DRG 269 ==
LOC: ASU 09:41 → 1E 09:51 → 3E 10-01 20:40